=== PATIENT | female | born 1970 | race Caucasian/White ===

== ENCOUNTER 2020-11-12 10:51 | Emergency (ER) | payer OTHER ==
[2020-11-12] MEDS ORDERED: Ondansetron 4 MG Tab.DIS PO ONE (12:17)
[2020-11-12] MEDS ORDERED: Meclizine 25 MG Tab PO ONE (12:17)
--- NOTE | 2020-11-12 12:27 | EDM.PDOC ---
ED HPI GENERAL MEDICAL PROBLEM - General Chief Complaint: Neuro Symptoms/Deficits Stated Complaint: DIZZY Time Seen by Provider: 11/12/20 12:10 Source of Information: Reports: Patient, Family, RN Notes Reviewed History Limitations: Reports: No Limitations - History of Present Illness INITIAL COMMENTS - FREE TEXT/NARRATIVE: 50-year-old female presents emergency department day complaint of dizziness, she states she was awoken felt dizzy at that time describes it as the room spinning she can still walk although it is better if she holds her head down does not look at [place]. She has no focal neurologic deficit she does admit she has been having problems with her blood sugar is was low around 50 this morning - Related Data Allergies Allergy/AdvReac Type Severity Reaction Status Date / Time erythromycin base Allergy Hives Verified 11/12/20 11:54 minocycline Allergy Hives Verified 11/12/20 11:54 morphine Allergy Nausea Verified 11/12/20 11:54 Home Meds: Home Meds Aspirin [Adult Low Dose Aspirin EC] 81 mg PO DAILY 11/12/20 [History] Citalopram [Citalopram HBr] 40 mg PO BEDTIME 11/12/20 [History] Empagliflozin [Jardiance] 25 mg PO DAILY 11/12/20 [History] Fenofibrate 160 mg PO DAILY 11/12/20 [History] Flash Glucose Scanning [place] [[employer] 14 Day [place]] 1 ml .ROUTE ASDIRECTED 11/12/20 [History] Insulin Regular, Human [Novolin R Flexpen] 30 units SQ BID 11/12/20 [History] Insuln Asp Prot/Insulin Aspart [NovoLOG Mix 70-30] 30 units SQ DAILY 11/12/20 [History] Insuln Asp Prot/Insulin Aspart [NovoLOG Mix 70-30] 90 units SQ BEDTIME 11/12/20 [History] Lisinopril/Hydrochlorothiazide [Lisinopril-Hctz 20-12.5 mg Tab] 2 tab PO DAILY 11/12/20 [History] Montelukast [Singulair] 10 mg PO BEDTIME 11/12/20 [History] atorvaSTATin [Lipitor] 20 mg PO BEDTIME 11/12/20 [History] Past Medical History Cardiovascular History: Reports: High Cholesterol, Hypertension Genitourinary History: Reports: Other (See Below) Other Genitourinary History: Kidney failure Musculoskeletal History: Reports: Fracture Endocrine/Metabolic History: Reports: Diabetes, Type II - Past Surgical History HEENT Surgical History: Reports: Adenoidectomy, Myringotomy w Tube(s), Tonsillectomy, Other (See Below) Other HEENT Surgeries/Procedures: sinus surgery GI Surgical History: Reports: Hernia Repair/Other Female Surgical History: Reports: Section Other Female Surgeries/Procedures: lap hyst Musculoskeletal Surgical History: Reports: Arthroscopic Knee, Other (See Below) Other Musculoskeletal Surgeries/Procedures:: ACL repair Social & Family History - Tobacco Use Tobacco Use Status *Q: Never Tobacco User - Caffeine Use Caffeine Use: Reports: None ED ROS GENERAL - Review of Systems Review Of Systems: See Below Constitutional: Denies: Fever, Chills HEENT: Reports: Vertigo Respiratory: Reports: No Symptoms Cardiovascular: Reports: No Symptoms GI/Abdominal: Reports: No Symptoms Neurological: Reports: Difficulty Walking (Feels unsteady) ED EXAM, NEURO - Physical Exam Exam: See Below Text/Narrative:: Head impulse test: Corrective saccades is positive correction when head turned to the bilateral Nystagmus: unidirectional, horizontal 1-beating nystagmus Skew deviation: grossly absent Exam Limited By: No Limitations General Appearance: Alert, WD/WN, No Apparent Distress Respiratory/Chest: No Respiratory Distress, Lungs Clear, Normal Breath Sounds, No Accessory Muscle Use, Chest Non-Tender Cardiovascular: Regular Rate, Rhythm, No Murmur Course - Vital Signs Last Recorded V/S: Last Vital Signs Temp 97.5 F 11/12/20 12:00 Pulse 74 11/12/20 15:16 Resp 14 11/12/20 15:16 BP 97/54 L 11/12/20 15:16 Pulse Ox 98 11/12/20 15:16 - Orders/Labs/Meds Orders: Active Orders 24 hr Category Date Time Status Peripheral IV Care [RC] . DIRECTED Care 11/12/20 13:44 Active Iopamidol [Isovue-370 (76%)] Med 11/12/20 14:45 Active 100 ml IV . DIRECTED Sodium Chloride 0.9% [Normal Saline] 1,000 ml Med 11/12/20 13:45 Active IV ASDIRECTED Sodium Chloride 0.9% [Normal Saline] 100 ml Med 11/12/20 14:45 Active IV ASDIRECTED Sodium Chloride 0.9% [Saline Flush] Med 11/12/20 13:44 Active 10 ml FLUSH ASDIRECTED PRN Peripheral IV Insertion Adult [OM.PC] Urgent Oth 11/12/20 13:44 Ordered Medication Orders Sodium Chloride (Normal Saline) 1,000 mls @ 500 mls/hr IV ASDIRECTED LEONORA Last Admin: 11/12/20 13:54 Dose: 500 mls/hr Documented by: NAHED Sodium Chloride (Normal Saline) 100 mls @ 3 mls/sec IV ASDIRECTED LEONORA Stop: 11/12/20 18:00 Last Admin: 11/12/20 14:59 Dose: 3 mls/sec Documented by: TAMMY Iopamidol (Iopamidol 755 Mg/Ml 100 Ml Bottle) 100 ml IV . DIRECTED LEONORA Stop: 11/12/20 18:00 Last Admin: 11/12/20 14:58 Dose: 100 ml Documented by: TAMMY Sodium Chloride (Sodium Chloride 0.9% 10 Ml Syringe) 10 ml FLUSH ASDIRECTED PRN PRN Reason: Keep Vein Open Last Admin: 11/12/20 14:03 Dose: 10 ml Documented by: NAHED Labs: Laboratory Tests 11/12/20 11/12/20 11/12/20 Range/Units 14:07 14:07 14:08 WBC 8.1 (4.5-11.0) K/uL RBC 4.35 (3.30-5.50) M/uL Hgb 12.5 (12.0-15.0) g/dL Hct 38.5 (36.0-48.0) % MCV 89 (80-98) fL MCH 29 (27-31) pg MCHC 33 (32-36) % Plt Count 313 (150-400) K/uL Neut % (Auto) 55 (36-66) % Lymph % (Auto) 33 (24-44) % [place] % (Auto) 8 H (2-6) % Eos % (Auto) 4 (2-4) % Baso % (Auto) 1 (0-1) % Sodium 140 (140-148) mmol/L Potassium 4.1 (3.6-5.2) mmol/L Chloride 103 (100-108) mmol/L Carbon Dioxide 24 (21-32) mmol/L Anion Gap 13.2 (5.0-14.0) mmol/L BUN 34 H (7-18) mg/dL Creatinine 1.2 H (0.6-1.0) mg/dL Est Cr Clr Drug Dosing 54.54 mL/min Estimated GFR (MDRD) 48 L (>60) Glucose 115 H (74-106) mg/dL Calcium 9.4 (8.5-10.1) mg/dL Urine Color Yellow (YELLOW) Urine Appearance Clear (CLEAR) Urine pH 5.5 (5.0-8.0) Ur Specific [place] 1.020 (1.008-1.030) Urine Protein Negative (NEGATIVE) mg/dL Urine Glucose (UA) 500 H (NEGATIVE) mg/dL Urine Ketones Negative (NEGATIVE) mg/dL Urine Occult Blood Negative (NEGATIVE) Urine Nitrite Negative (NEGATIVE) Urine Bilirubin Negative (NEGATIVE) Urine Urobilinogen 0.2 (0.2-1.0) EU/dL Ur Leukocyte Esterase Negative (NEGATIVE) Urine RBC 0-5 (0-5) Urine WBC 0-5 (0-5) Ur Epithelial Cells Moderate Amorphous Sediment Occasional Urine Bacteria Few Urine Mucus Occasional Meds: Medications Generic Name Dose Route Start Last Admin Trade Name Freq PRN Reason Stop Dose Admin Sodium Chloride 1,000 mls @ 500 mls/hr 11/12/20 13:45 11/12/20 13:54 Normal Saline IV 500 mls/hr ASDIRECTED LEONORA Administration Sodium Chloride 100 mls @ 3 mls/sec 11/12/20 14:45 11/12/20 14:59 Normal Saline IV 11/12/20 18:00 3 mls/sec ASDIRECTED LEONORA Administration Iopamidol 100 ml 11/12/20 14:45 11/12/20 14:58 Iopamidol 755 Mg/Ml 100 Ml Bottle IV 11/12/20 18:00 100 ml . DIRECTED LEONORA Administration Sodium Chloride 10 ml 11/12/20 13:44 11/12/20 14:03 Sodium Chloride 0.9% 10 Ml Syringe FLUSH 10 ml ASDIRECTED PRN Administration Keep Vein Open Discontinued Medications Generic Name Dose Route Start Last Admin Trade Name Freq PRN Reason Stop Dose Admin Lorazepam 0.5 mg 11/12/20 15:38 11/12/20 15:45 Lorazepam 2 Mg/Ml Sdv IVPUSH 11/12/20 15:39 0.5 mg ONETIME ONE Administration Meclizine HCl 25 mg 11/12/20 12:17 11/12/20 12:28 Meclizine 25 Mg Tab PO 11/12/20 12:18 25 mg ONETIME ONE Administration Ondansetron HCl 4 mg 11/12/20 12:17 11/12/20 12:28 Ondansetron 4 Mg Tab.Dis PO 11/12/20 12:18 4 mg ONETIME ONE Administration Sodium Chloride 10 ml 11/12/20 14:31 11/12/20 16:18 Sodium Chloride 0.9% 10 Ml Sdv FLUSH 11/12/20 14:32 Not Given ONETIME ONE - Re-Assessments/Exams Free Text/Narrative Re-Assessment/Exam: 11/12/20 13:45 Try meclizine and Zofran she did not feel any improvement still feels dizzy still has trouble walking Departure - Departure Time of Disposition: 16:27 Disposition: Home, Self-Care 01 Condition: Fair Clinical Impression: Vertigo - Discharge Information Instructions: Vertigo, [id number] Referrals: PCP,None [Primary Care Provider] - Forms: ED Department Discharge Additional Instructions: Continue to use Ativan as needed for dizzy symptoms, please followup with your primary care provider in 3-5 days if not better, please call return to the emergency department with worsening of symptoms. Sepsis Event Note (ED) - Evaluation Sepsis Screening Result: No Definite Risk - Focused Exam Vital Signs: Vital Signs Temp Pulse Resp BP Pulse Ox 11/12/20 15:16 74 14 97/54 L 98 11/12/20 12:00 97.5 F 74 16 102/65 99 11/12/20 11:42 97.5 F 74 16 102/65 99 - My Orders Last 24 Hours: My Active Orders 11/12/20 13:44 Peripheral IV Care [RC] . DIRECTED Sodium Chloride 0.9% [Saline Flush] 10 ml FLUSH ASDIRECTED PRN Peripheral IV Insertion Adult [OM.PC] Urgent 11/12/20 13:45 Sodium Chloride 0.9% [Normal Saline] 1,000 ml IV ASDIRECTED 11/12/20 14:45 Iopamidol [Isovue-370 (76%)] 100 ml IV . DIRECTED Sodium Chloride 0.9% [Normal Saline] 100 ml IV ASDIRECTED - Assessment/Plan Last 24 Hours: My Active Orders 11/12/20 13:44 Peripheral IV Care [RC] . DIRECTED Sodium Chloride 0.9% [Saline Flush] 10 ml FLUSH ASDIRECTED PRN Peripheral IV Insertion Adult [OM.PC] Urgent 11/12/20 13:45 Sodium Chloride 0.9% [Normal Saline] 1,000 ml IV ASDIRECTED 11/12/20 14:45 Iopamidol [Isovue-370 (76%)] 100 ml IV . DIRECTED Sodium Chloride 0.9% [Normal Saline] 100 ml IV ASDIRECTED Plan: Assessment Acuity = acute Site and laterality = vertigo Etiology = unknown Manifestations = none Location of injury = Home Lab values = CBC BMP unremarkable other than creatinine elevated 1.2 consistent with chronic renal failure stage G3 a, CT of the head shows no acute process CTA reveals no stenosis or occlusion Plan No relief combination Zofran or meclizine, did get good relief with Ativan follow-up primary care 3 to 5 days if no improvement This note was dictated using [employer] voice recognition software please call with any questions on syntax or grammar.
[2020-11-12] MEDS ORDERED: Sodium Chloride 0.9% 10 ML Syringe FLUSH PRN (13:44)
[2020-11-12] MEDS ORDERED: Sodium Chloride 0.9% 1,000 ML IV SCH (13:45)
[2020-11-12] MEDS ORDERED: Sodium Chloride 0.9% 10 ML SDV FLUSH ONE (14:31)
[2020-11-12] MEDS ORDERED: Iopamidol 755 Mg/ML 100 ML Bottle IV SCH (14:45)
[2020-11-12] MEDS ORDERED: Sodium Chloride 0.9% 100 ML IV SCH (14:45)
--- NOTE | 2020-11-12 15:08 | CT ---
Head wo Cont CLINICAL HISTORY: Dizziness, difficulty walking COMPARISON: None TECHNIQUE: Transverse scans were obtained from the base of the skull through the vertex without IV contrast on a multislice, multidetector CT scanner. Auto dosage reduction and iterative reconstruction techniques employed. FINDINGS: No focal abnormal parenchymal density is identified.. There is no mass effect, hemorrhage, or extraaxial collection. The basal cisterns and sulci over the convexities are normal. The ventricles are normal. IMPRESSION: No acute intracranial findings
--- NOTE | 2020-11-12 15:16 | CT ---
Ang Head CLINICAL HISTORY: Difficulty walking, dizziness. COMPARISON: None TECHNIQUE: Multiple volume rendered and MIP 3D reconstructions were generated from source images obtained on a spiral scanner before and after intravenous iodinated contrast enhancement Auto dosage reduction and iterative reconstruction techniques employed. FINDINGS: Internal carotid arteries: Normal course and contour Anterior cerebral arteries: Normal course and contour. The anterior communicating artery is not visualized and may be absent Middle cerebral arteries: Normal course and contour Posterior cerebral arteries: Normal course and contour the posterior technique 80 arteries are not visualized. Vertebral/basilar arteries: Normal course and contour IMPRESSION: No significant stenosis, occlusion or aneurysm
[2020-11-12] MEDS ORDERED: LORazepam 2 MG/ML SDV IVPUSH ONE (15:38)
== END 2020-11-12 17:02 | disposition home or self-care (01) ==
LOC: JP.ED 10:51
DX: R42 Dizziness and giddiness (principal); E78.00 Pure hypercholesterolemia, unspecified; I10 Essential (primary) hypertension; E11.9 Type 2 diabetes mellitus without complications; Z79.4 Long term (current) use of insulin; Z79.899 Other long term (current) drug therapy; Z79.82 Long term (current) use of aspirin; Z88.1 Allergy status to other antibiotic agents; Z88.5 Allergy status to narcotic agent; Z88.8 Allergy status to other drugs, medicaments and biological substances
CPT/HCPCS: 36415; 70450; 70450-26; 70496; 70496-26; 80048; 81001; 85025; 96374; 99283; 99284-25; A9270-GY; J2060; J7030; Q9967

== ENCOUNTER 2022-11-15 07:00 | Day surgery (SDC) | payer OTHER ==
[2022-11-15] MEDS ORDERED: Propofol 200 MG/20 ML SDV ONE ×2 (07:20→08:50)
[2022-11-15] MEDS ORDERED: fentaNYL 100 MCG/2 ML SDV ONE (07:20)
[2022-11-15] MEDS ORDERED: Midazolam 1 MG/ML 2 ML SDV ONE (07:20)
[2022-11-15] MEDS ORDERED: Lactated Ringers 1,000 ML IV SCH (07:30)
[2022-11-15] MEDS ORDERED: Dextrose 5%-Lactated Ringers 1,000 ML IV SCH (07:30)
== END 2022-11-15 10:10 | disposition home or self-care (01) ==
LOC: JP.SDS 07:00
PROVIDERS: ATTEND Student in an Organized Health Care Education/Training Program
DX: D12.5 Benign neoplasm of sigmoid colon (principal); K57.30 Diverticulosis of large intestine without perforation or abscess without bleeding; K58.0 Irritable bowel syndrome with diarrhea; E11.22 Type 2 diabetes mellitus with diabetic chronic kidney disease; N18.2 Chronic kidney disease, stage 2 (mild); E66.9 Obesity, unspecified; Z88.5 Allergy status to narcotic agent; Z88.1 Allergy status to other antibiotic agents; Z91.048 Other nonmedicinal substance allergy status
CPT/HCPCS: 88305; J2250; J2704; J3010; J7121

== ENCOUNTER 2023-05-16 09:57 | Day surgery (SDC) | payer OTHER ==
[2023-05-16] MEDS ORDERED: Lactated Ringers 1,000 ML IV SCH (10:30)
[2023-05-16] MEDS ORDERED: Propofol 200 MG/20 ML SDV ONE ×3 (11:03→13:19)
[2023-05-16] MEDS ORDERED: fentaNYL 50 MCG/ML SDV ONE (11:04)
[2023-05-16] MEDS ORDERED: Midazolam 1 MG/ML 2 ML SDV ONE (11:04)
== END 2023-05-16 14:34 | disposition home or self-care (01) ==
LOC: JP.SDS 09:57
PROVIDERS: ATTEND Student in an Organized Health Care Education/Training Program
DX: R19.7 Diarrhea, unspecified (principal); Q43.8 Other specified congenital malformations of intestine; E11.22 Type 2 diabetes mellitus with diabetic chronic kidney disease; J45.909 Unspecified asthma, uncomplicated; N18.9 Chronic kidney disease, unspecified; E78.00 Pure hypercholesterolemia, unspecified; Z88.5 Allergy status to narcotic agent; Z88.1 Allergy status to other antibiotic agents; Z88.8 Allergy status to other drugs, medicaments and biological substances
CPT/HCPCS: 45380; J2250; J2704; J3010; J7120